=== PATIENT | female | born 1985 | race Hispanic/Latino ===

== ENCOUNTER 2018-06-24 16:46 | Emergency (ER) | payer BC, OTHER, SELFPAY ==
[2018-06-24 17:31] LABS: Urine Blood TRACE (NEG); Urine Glucose NEGATIVE (NEG); Urine Protein NEGATIVE (NEG); Urine pH 5.5 (5.0-7.0)
[2018-06-24] MEDS ORDERED: MORPHINE 4 MG/ML SYR ONE (17:47)
[2018-06-24] MEDS ORDERED: ONDANSETRON 4 MG/2 ML VIAL ONE (17:48)
[2018-06-24 17:57] LABS: Absolute Lymphocytes (CBC) 1.5 K/uL (0.7-4.9); Absolute Monocytes 1.1 K/uL (0.1-1.3); Absolute Neutrophil 5.4 K/uL (1.8-8.0); Basophils % 0.4 % (0-1.3); Eosinophils % 2.2 % (0-4.4); Lymphocytes % 18.2 % (15.3-44.8); MCH 21.9 pg (27.0-35.0); MCV 69.4 fL (80-100); MPV 10.7 fL (7.6-11.3); Monocytes % 13.1 % (3.3-12.3); RBC Red Blood Cell Count 4.76 M/uL (3.86-4.86)
[2018-06-24 18:10] LABS: ALT/SGPT 29 U/L (12-78); AST/SGOT 26 U/L (15-37); Albumin 3.8 g/dL (3.4-5.0); Alkaline Phosphatase 95 U/L (45-117); BUN Blood Urea Nitrogen 9 mg/dL (7-18); Bicarbonate 26 mmol/L (21-32); Bilirubin Direct < 0.1 mg/dL (0-0.2); Bilirubin Total 0.3 mg/dL (0.2-1.0); Glucose Level 111 mg/dL (74-106); Lipase 194 U/L (73-393); Potassium 3.3 mmol/L (3.5-5.1); Protein, Total 8.1 g/dL (6.4-8.2); Sodium Level 141 mmol/L (136-145)
--- NOTE | 2018-06-24 18:18 | RAD REPORT ---
EXAM DESCRIPTION: CT - Stone Protocol - 06/24/2018 6:08 pm CLINICAL HISTORY: Flank pain. FLANK PAIN COMPARISON: Stone Protocol dated 01/20/2017 TECHNIQUE: Axial images were obtained without oral or IV contrast. Lack of contrast limits solid org an and vascular assessment. The [id number] spans the entirety of the system partially obscuring uppermost abdomen and lung bases. Coronal reformatted images were obtained and reviewed. All CT scans are performed using dose optimization technique as appropriate and may include automated exposure control or mA/KV adjustment according to patient size. FINDINGS: The lower lung cha are clear. Imaged portions of the liver and spleen show no suspicious findings on non-contrast imaging. The panc reas and adrenal glands are normal. No pathologic lymphadenopathy in the abdomen or pelvis. Several stones are present in the right kidney the largest measuring 5 mm in the superior calyx. No h ydronephrosis. No ureter or bladder stones. No bowel obstruction, free air, free fluid or abscess. Normal appendix noted.5 cm left ovarian cyst s uspected. IUD is present in the uterus. No significant bony abnormality. IMPRESSION: 5 cm left ovarian cyst is suspected. Right nephrolithiasis. No hydronephrosis.
[2018-06-24 19:43] LABS: Anisocytosis 2+; Blood Morphology Comment NOTED (NOT SEEN); Platelet Estimate ADEQ; Urine White Blood Cell Casts OK
--- NOTE | 2018-06-24 20:01 | ER ---
Nurse's Notes [facility] Name: Leyla Parsons Age: 33 yrs Sex: Female : 1985 Arrival Date: 06/24/2018 Time: 16:48 Bed 23 Private MD: Diagnosis: Unspecified ovarian cysts;Low back pain Presentation: 06/24 17:03 Presenting complaint: Patient states: KHAI lower back pain for one week, chills and la1 nausea yesterday. Denies urinary symptoms. Transition of care: patient was not received from another setting of care. Onset of symptoms was June 24, 2018. Risk Assessment: Do you want to hurt yourself or someone else? Patient reports no desire to harm self or others. Initial Sepsis Screen: Does the patient meet any 2 criteria? No. Patient's initial sepsis screen is negative. Does the patient have a suspected source of infection? No. Patient's initial sepsis screen is negative. Care prior to arrival: None. 17:03 Method Of Arrival: Ambulatory la1 17:03 Acuity: MANISH 3 la1 TRIM CARPENTER: 18:27 LMP N/A - control method kr2 Historical: - Allergies: 17:04 Amoxicillin; la1 - PMHx: 17:04 None; la1 - Immunization history:: Adult Immunizations up to date. - Social history:: Smoking status: Patient/guardian denies using tobacco. - Ebola Screening: : No symptoms or risks identified at this time. Screenin:28 Abuse screen: Denies threats or abuse. Denies injuries from another. Nutritional kr2 screening: No deficits noted. Tuberculosis screening: No symptoms or risk factors identified. Fall Risk None identified. Assessment: 17:10 General: Appears in no apparent distress. uncomfortable, well groomed, well developed, kr2 well nourished, Behavior is calm, cooperative, appropriate for age. Pain: Complains of pain in lumbar area and right low back Pain radiates to thoracic area, lumbar area, sacrum and left low back, right and left leg Pain currently is 7 out of 10 on a pain scale. Quality of pain is described as aching, radiating, sharp, shooting, Is continuous, Alleviated by rest, Aggravated by increased activity, repositioning, Noted to be grimacing. Neuro: Level of Consciousness is awake, alert, obeys commands, Oriented to person, place, time, situation, Asset Coordinator are equal bilaterally Moves all extremities. Gait is steady, Intact. Cardiovascular: Capillary refill < 3 seconds in bilateral fingers Patient's skin is warm and dry. Respiratory: Airway is patent Respiratory effort is even, unlabored, Respiratory pattern is regular, symmetrical, Breath sounds are clear bilaterally. GI: Abdomen is flat, non-distended, Bowel sounds present X 4 quads. : Urine is clear. EENT: Oral mucosa is moist. Derm: Skin is intact, is healthy with good turgor, Skin is pink, warm \T\ dry. Musculoskeletal: Circulation, motion, and sensation intact. 18:30 Reassessment: Patient appears in no apparent distress at this time. Patient and/or kr2 family updated on plan of care and expected duration. Pain level reassessed. Patient is alert, oriented x 3, equal unlabored respirations, skin warm/dry/pink. Patient states feeling better. 19:30 Reassessment: Patient appears in no apparent distress at this time. Patient and/or kr2 family updated on plan of care and expected duration. Pain level reassessed. Patient is alert, oriented x 3, equal unlabored respirations, skin warm/dry/pink. Patient denies pain at this time. Patient states feeling better. Patient states symptoms have improved. Vital Signs: 17:04 BP 128 / 64; Pulse 88; Resp 16; Temp 98.6; Pulse Ox 98% on R/A; Weight 101.6 kg; Height la1 5 ft. 2 in. (157.48 cm); 18:27 BP 122 / 64; Pulse 79; Resp 17; Pulse Ox 98% on R/A; kr2 19:59 BP 118 / 62; Pulse 64; Resp 15; Pulse Ox 96% on R/A; kr2 17:04 Body Mass Index 40.97 (101.60 kg, 157.48 cm) la1 ED Course: 16:48 Patient arrived in ED. as 16:51 Amador Ramirez PA is PHCP. [facility] 16:51 Krishna Marroquin MD is Attending Physician. [facility] 17:04 Triage completed. la1 17:05 Arm band placed on right wrist. la1 17:10 Inserted saline lock: 20 gauge in right forearm, using aseptic technique. ,using kr2 aseptic technique. Performed by Wood, RN Blood collected. 17:25 Judith Sosa, RN is Primary Nurse. kr2 17:28 Patient has correct armband on for positive identification. Bed in low position. Call kr2 light in reach. Side rails up X 1. Pulse ox on. NIBP on. Door closed. Warm blanket given. Head of bed elevated. 18:02 CT completed. Patient moved to CT via wheelchair. Patient moved back from CT. cw1 18:03 CT Stone Protocol In Process Unspecified. EDMS 19:47 Ultrasound completed. Patient tolerated well. Notified TIRE RECAPPER/PAULA RAMIREZ . sg3 19:51 Transvaginal Study Probe In Process Unspecified. EDMS 20:18 No provider procedures requiring assistance completed. IV discontinued, intact, kr2 bleeding controlled, No redness/swelling at site. Pressure dressing applied. Administered Medications: 17:46 Drug: morphine 4 mg Route: IVP; Site: right forearm; kr2 18:11 Follow up: Response: No adverse reaction; Pain is decreased kr2 17:46 Drug: Zofran 4 mg Route: IVP; Site: right forearm; kr2 18:11 Follow up: Response: No adverse reaction kr2 Outcome: 20:00 Discharge ordered by . kin 20:19 Discharged to home ambulatory, with family. kr2 20:19 Condition: good 20:19 Discharge instructions given to patient, Instructed on discharge instructions, follow up and referral plans. medication usage, Demonstrated understanding of instructions, follow-up care, medications, Prescriptions given X 2. 20:21 Patient left the ED. kr2 Signatures: Dispatcher [employer] EDMS Amador Ramirez PA PA jmm Martinez, Amelia as Woodley, Crystal cw1 Darryn Sierra, RN RN la1 Judith Sosa, RN RN kr2 Juanita Silva sg3
--- NOTE | 2018-06-24 20:02 | EDPHYS ---
Physician Documentation [facility] Name: Leyla Parsons Age: 33 yrs Sex: Female : 1985 Arrival Date: 06/24/2018 Time: 16:48 Bed 23 Private MD: ED Physician Krishna Marroquin HPI: 06/24 17:33 This 33 yrs old Female presents to ER via Ambulatory with complaints of Low jmm Back Pain. 17:33 The patient presents with pain that is acute, with no known mechanism of injury. The jmm symptoms are located in the mid back area, left mid back and right mid back. The pain radiates. Onset: The symptoms/episode began/occurred gradually, 1 week(s) ago. This is a 33 year old female with no chronic medical conditions that presents to the ED with mid back pain which radiates up the back and down to the legs. Patient denies abdominal pain Patient states having one episode of vomiting, denies diarrhea, Denies fever but states having chills. . LABEL DRIER: 18:27 LMP N/A - control method kr2 Historical: - Allergies: 17:04 Amoxicillin; la1 - PMHx: 17:04 None; la1 - Immunization history:: Adult Immunizations up to date. - Social history:: Smoking status: Patient/guardian denies using tobacco. - Ebola Screening: : No symptoms or risks identified at this time. ROS: 17:33 Constitutional: Negative for fever, chills, and weight loss, Cardiovascular: Negative jmm for chest pain, palpitations, and edema, Respiratory: Negative for shortness of breath, cough, wheezing, and pleuritic chest pain. 17:33 : Negative for injury, bleeding, discharge, and swelling, MS/Extremity: Negative for injury and deformity, Skin: Negative for injury, rash, and discoloration, Neuro: Negative for headache, weakness, numbness, tingling, and seizure. 17:33 Back: Positive for pain at rest, pain with movement. 17:33 All other systems are negative. Exam: 17:33 Head/Face: atraumatic. Chest/axilla: Normal chest wall appearance and motion. jmm Cardiovascular: Regular rate and rhythm. No edema appreciated Respiratory: Normal respirations, no respiratory distress appreciated 17:33 Constitutional: The patient appears in no acute distress, alert, awake. 17:33 Abdomen/GI: Inspection: abdomen appears normal, Bowel sounds: normal, Palpation: abdomen is soft and non-tender, in all quadrants. 17:33 Back: ROM is normal, CVA tenderness, that is moderate, is noted on the right, is noted on the left. 17:33 Back: CVA tenderness. 17:33 Musculoskeletal/extremity: ROM: intact in all extremities. 17:33 Skin: Appearance: Color: normal in color. 17:33 Neuro: Orientation: is normal, Mentation: is normal, Memory: is normal. 17:33 Psych: Behavior/mood is pleasant, cooperative. Vital Signs: 17:04 BP 128 / 64; Pulse 88; Resp 16; Temp 98.6; Pulse Ox 98% on R/A; Weight 101.6 kg; Height la1 5 ft. 2 in. (157.48 cm); 18:27 BP 122 / 64; Pulse 79; Resp 17; Pulse Ox 98% on R/A; kr2 19:59 BP 118 / 62; Pulse 64; Resp 15; Pulse Ox 96% on R/A; kr2 17:04 Body Mass Index 40.97 (101.60 kg, 157.48 cm) la1 MDM: 17:32 Patient medically screened. [facility] 19:40 Data reviewed: vital signs, nurses notes. [facility] 19:50 Data reviewed: lab test result(s), radiologic studies, CT scan, ultrasound. [facility] 19:50 ED course: Pain relieved in the ED. I discussed with the patient the need to follow [facility] with OB for the large ovarian cyst. Patient is otherwise given strict return precautions. Patient understood and agrees with the plan of care. . 19:59 Counseling: I had a detailed discussion with the patient and/or guardian regarding: the [facility] historical points, exam findings, and any diagnostic results supporting the discharge/admit diagnosis, radiology results, the need for outpatient follow up, to return to the emergency department if symptoms worsen or persist or if there are any questions or concerns that arise at home. 06/24 17:26 Order name: Urine Dipstick--Ancillary (enter results); Complete Time: 17:32 eb 06/24 17:26 Order name: Urine --Ancillary (enter results); Complete Time: 17:32 eb 06/24 17:32 Order name: Basic Metabolic Panel; Complete Time: 18:10 [facility] 06/24 17:32 Order name: CBC with Diff; Complete Time: 19:46 [facility] 06/24 17:32 Order name: Creatinine for Radiology; Complete Time: 18:10 [facility] 06/24 17:32 Order name: Hepatic Function; Complete Time: 18:10 [facility] 06/24 17:32 Order name: Lipase; Complete Time: 18:10 [facility] 06/24 17:32 Order name: IV Saline Lock; Complete Time: 17:35 [facility] 06/24 17:32 Order name: CT Stone Protocol; Complete Time: 18:24 [facility] 06/24 18:11 Order name: CBC Smear Scan; Complete Time: 19:46 [facility] 06/24 19:47 Order name: Transvaginal Study Probe; Complete Time: 20:20 [facility] 06/24 17:32 Order name: Labs collected and sent; Complete Time: 17:35 jmm Administered Medications: 17:46 Drug: morphine 4 mg Route: IVP; Site: right forearm; kr2 18:11 Follow up: Response: No adverse reaction; Pain is decreased kr2 17:46 Drug: Zofran 4 mg Route: IVP; Site: right forearm; kr2 18:11 Follow up: Response: No adverse reaction kr2 Disposition: 06/24/18 20:00 Discharged to Home. Impression: Unspecified ovarian cysts, Low back pain. - Condition is Stable. - Discharge Instructions: Back Pain, Adult, Ovarian Cyst. - Prescriptions for Ibuprofen 800 mg Oral Tablet - take 1 tablet by ORAL route every 8 hours As needed take with food; 30 tablet. orphenadrine citrate 100 mg Oral Tablet Sustained Release - take 1 tablet by ORAL route 2 times per day As needed; 20 tablet. - Medication Reconciliation Form, Thank You Letter, Antibiotic Education, Prescription Opioid Use form. - Follow up: Private Physician; When: 2 - 3 days; Reason: Recheck today's complaints, Continuance of care, Re-evaluation by your physician. Signatures: Dispatcher [employer] EDMA Amador Ramirez PA PA Darryn Liu RN RN [email or web address] Judith Sosa RN RN kr2 Corrections: (The following items were deleted from the chart) 19:47 18:32 Pelvis Complete+US.RAD.BRZ ordered. EDMS EDMS 20:21 20:00 06/24/2018 20:00 Discharged to Home. Impression: Unspecified ovarian cysts; Low kr2 back pain. Condition is Stable. Forms are Medication Reconciliation Form, Thank You Letter, Antibiotic Education, Prescription Opioid Use. Follow up: Private Physician; When: 2 - 3 days; Reason: Recheck today's complaints, Continuance of care, Re-evaluation by your physician. ikn
--- NOTE | 2018-06-24 20:10 | RAD REPORT ---
EXAM DESCRIPTION: US - Transvaginal Study Probe - 06/24/2018 7:51 pm CLINICAL HISTORY: back pain Pelvic pain. COMPARISON: TRANSVAGINAL STUDY PROBE dated 10/19/2015 FINDINGS: The uterus is normal in size, shape and echotexture. The uterus measures 7.3 x 4.3 x 3.1 c m. The endometrial stripe is thin and contains an IUD in the fundal endometrium. Both ovaries are normal in size, shape and echotexture. The right ovary measures 3.9 x 2.9 x 1.9 cm. The left ovary measures 6.0 x 4.4 x 4.4 cm. 4.8 x 4.6 cm left ovarian hypoechoic cyst is present. N o adnexal masses. Normal Doppler blood flow was demonstrated to both ovaries. No significant pelvic ascites. IMPRESSION: 4.8 x 4.6 cm left ovarian cyst, likely functional in etiology.
== END 2018-06-24 20:21 | disposition home or self-care (01) ==
LOC: ER 16:46
DX: N83.209 Unspecified ovarian cyst, unspecified side (principal); Z88.1 Allergy status to other antibiotic agents
CPT/HCPCS: 36415; 74176; 76377; 76830; 80048; 80076; 81003; 81025; 83690; 85025; 96374; 96375; 99284; J2405